=== PATIENT | male | born 1990 | race Caucasian/White ===

== ENCOUNTER 2017-05-01 08:05 | Day surgery (SDC) | payer OTHER ==
[2017-05-01 08:32] VITALS: BMI 30.7
[2017-05-01] MEDS ORDERED: Propofol 10 mg/ml Inj (20 ML) ONE (10:04)
--- NOTE | 2017-05-01 10:10 | CP.SDSHP ---
Same Day Surgery H & P - History Proposed Procedure: EGD Pre-Op Diagnosis: SEE NOTES - Previous Medical/Surgical History Neuro: Headaches, Backaches Misc: Other Pain: 4.Moderate Pain - Allergies Allergies: Allergies No Known Allergies Allergy (Verified 07/14/15 17:22) - Physical Exam General Appearance: N Vital Signs: Vital Signs 05/01/17 08:32 Temperature 99.6 F Pulse Rate 79 Respiratory 19 Rate Blood Pressure 123/77 O2 Sat by Pulse 99 Oximetry Mental Status: Alert & Oriented x3 Neuro: WNL Heart: WNL Lungs: WNL GI: Other - {Optional Preform as Required} Breast: WNL Abdomen: Other Rectal: Other Integument: WNL : WNL Ortho: Other ENT: WNL - Impression Pt. Evaluated Today:Candidate for Anesthesia & Procedure: Yes - Date & Time Time: 10:09 Short Stay Discharge - Short Stay Discharge Admitting Diagnosis/Reason for Visit: FUNCTIONAL DYSPEPSIA Disposition: HOME/ ROUTINE
[2017-05-01] MEDS ORDERED: Lactated Ringer's 500 ML IV SCH (10:15)
[2017-05-01] MEDS ORDERED: Belladonna-Phenobarbital PO ONE (10:35)
[2017-05-01 10:47] VITALS: TEMP 97
[2017-05-01 11:19] VITALS: PULSE 70; O2SAT 100
[2017-05-01 14:06] VITALS: BP 118/70; RESP 18
== END 2017-05-01 12:00 | disposition home or self-care (01) ==
LOC: C.ENDO 08:05
PROVIDERS: ATTEND Specialist
DX: K29.50 Unspecified chronic gastritis without bleeding (principal); K20.9 Esophagitis, unspecified; K44.9 Diaphragmatic hernia without obstruction or gangrene
CPT/HCPCS: 43239; 88305; 88342; J2704; J7120